=== PATIENT | male | born 1955 | race Caucasian/White ===

== ENCOUNTER 2019-05-11 19:30 | Inpatient (IN) | payer BC ==
[~2019-05-11] VITALS: Ht 167.6 cm; Wt 82.8 kg
[~2019-05-11 19:30] MED LIST: ACET325T14 PO; ASPI-515 PO; ASPI-650 PO; ATOR-2 PO; BISA10SU54 PR; CLOP75TA PO; CYAN-27 PO; DOCU100C33 PO; ENOX40SY4 SQ; HYDR-3237 PO; LISI-167 PO; NICO-485 TD; POLY17PO5 PO; TEMA15CA PO; UNK BP MED; [UNRECOGNIZED DRUG - CODE] TP
--- NOTE | 2019-05-11 19:52 | NUR ---
GUILLERMINA VASQUEZ SON [phone]. CALL FOR RIDE HOME AND UPDATES
--- NOTE | 2019-05-11 20:07 | NUR ---
Patient presents to ER c/o unspecified abd pain. Patient has N/V. Symptoms since yesterday. Patient denies back pain. Patient denies diarrhea. Patient is in NAD. REspirations even and unlabored. No pain upon palpation.
[2019-05-11] MEDS ORDERED: ONDANSETRON 2MG/ML, 2ML ONE (20:22)
[2019-05-11] MEDS ORDERED: METO25TA35 PO (20:25)
[2019-05-11] MEDS ORDERED: SODIUM CHLORIDE FLUSH 10ML SYR IVF ONE (20:30)
[2019-05-11] MEDS ORDERED: ONDANSETRON 2MG/ML, 2ML IVPush ONE (20:30)
[2019-05-11] MEDS ORDERED: SODIUM CHLORIDE 0.9% 1,000ML IVBOLUS ONE (20:30)
--- NOTE | 2019-05-11 20:31 | NUR ---
EKG DONE BY [facility]
[2019-05-11 20:53] LABS: BASOPHILS # (AUTO) 0.05 x10^3/uL (0-0.1); BASOPHILS % (AUTO) 0 % (0-1); EOSINOPHILS # (AUTO) 0.03 x10^3/uL (0-0.4); EOSINOPHILS % (AUTO) 0 % (1-7); LYMPHOCYTES # (AUTO) 1.01 x10^3/uL (1-3.4); LYMPHOCYTES % (AUTO) 9 % (22-44); MD NO; MEAN CORPUSCULAR HEMOGLOBIN 30.6 pg (27.5-34.5); MEAN CORPUSCULAR HGB CONC 33.3 g/dL (33.2-36.2); MEAN CORPUSCULAR VOLUME 91.7 fL (81-97); MEAN PLATELET VOLUME 8.1 fL (7.4-10.4); MONOCYTES # (AUTO) 0.73 x10^3/uL (0.2-0.8); MONOCYTES % (AUTO) 6 % (2-9); NEUTROPHILS # (AUTO) 9.52 x10^3/uL (1.8-6.8); NEUTROPHILS % (AUTO) 84 % (42-75); PLATELET COUNT 326 x10^3/uL (130-400); RED BLOOD COUNT 5.33 x10^6/uL (4.38-5.82); RED CELL DISTRIBUTION WIDTH 15.5 % (9.4-14.8)
[2019-05-11 21:02] LABS: ALANINE AMINOTRANSFERASE 44 U/L (12-78); ANION GAP 8 mmol/L (5-15); CALCIUM 9.5 mg/dL (8.5-10.1); CHLORIDE 105 mmol/L (98-107); CREATININE 1.77 mg/dL (0.7-1.3)
[2019-05-11 21:10] LABS: ALKALINE PHOSPHATASE 122 U/L (45-117); BILIRUBIN,TOTAL 0.6 mg/dL (0.2-1.0); TOTAL PROTEIN 8.8 g/dL (6.4-8.2)
--- NOTE | 2019-05-11 21:31 | NUR ---
PT REFUSED CT UNTIL HE TALK TO HIS SON.
--- NOTE | 2019-05-11 22:14 | NUR ---
Spoke with patient regarding CT. Patient agreed to have the CT. Called son and LVM and asked him to come to the ER to be with patient. Patient is a poor historian and has to be reminded often of the situation.
--- NOTE | 2019-05-11 22:27 | NUR ---
Patient in CT.
[2019-05-11] MEDS ORDERED: OMNIPAQUE 350 MG/ML, 100ML BOTTLE ONE (22:29)
--- NOTE | 2019-05-11 23:00 | NUR ---
Spoke with Doc, patient's son. He is to be here in approx 20 min.
[2019-05-11] MEDS ORDERED: METRONIDAZOLE PMX 500MG/100ML 100 ML ONE (23:08)
[2019-05-11] MEDS ORDERED: AMLO10TA8 PO (23:12)
[2019-05-11] MEDS ORDERED: ATOR40TA78 PO (23:12)
--- NOTE | 2019-05-12 00:20 | NUR ---
Break RN: Dr. Hays at bedside
[2019-05-12 00:25] LABS: INTERNATIONAL NORMALIZED RATIO 0.99 (0.93-1.1); PROTHROMBIN TIME 10.5 Seconds (9.6-11.5)
[2019-05-12] MEDS ORDERED: hydrALAzine 20 MG/ML, 1ML IVPush PRN (00:30)
[2019-05-12] MEDS ORDERED: ONDANSETRON 2MG/ML, 2ML IVPush PRN (00:30)
[2019-05-12] MEDS ORDERED: ACETAMINOPHEN 325 MG TABLET PO PRN (00:30)
[2019-05-12] MEDS ORDERED: morphine SULFATE 10 MG/ML, 1ML IVPush PRN (00:30)
[2019-05-12] MEDS ORDERED: PROMETHAZINE 25 MG/ML, 1ML IM PRN (00:30)
[2019-05-12] MEDS: LACTATED RINGERS 1,000 ML IV SCH ×3 (00:30→12:33)
[2019-05-12] MEDS ORDERED: CEFTRIAXONE PMX 1GM/50ML 50 ML ONE (00:35)
[2019-05-12] MEDS ORDERED: METRONIDAZOLE PMX 500MG/100ML 0 ML ONE (00:35)
[2019-05-12] MEDS: CEFTRIAXONE PMX 1GM/50ML 50 ML IV SCH (00:38)
--- NOTE | 2019-05-12 00:42 | NUR ---
TASK RN: ABX INITIATED. BC X2 DRAWN PRIOR TO ADMIN. PT SITTING UP, AWAKE/ALERT, MILDLY ALTERED. SON AT BEDSIDE. PT APPEARS PALE. IVF INFUSING. BP/SPO2/ECG MONITORING IN PLACE. NSR ON MONITOR.
[2019-05-12] MEDS: METRONIDAZOLE PMX 500MG/100ML 100 ML IV SCH ×4 (00:59→18:41)
[2019-05-12] MEDS ORDERED: SODIUM PHOSPHATE 10 MMOL in SODIUM CHLORIDE 0.9% 500 ML IV ONE (01:00)
--- NOTE | 2019-05-12 01:14 | NUR ---
Report given to AMIRAH Madera. Patient to be transferred to room 551-1.
[2019-05-12 01:46] VITALS: BP 134/79
[2019-05-12 03:37] LABS: BASOPHILS # (AUTO) 0.03 x10^3/uL (0-0.1); BASOPHILS % (AUTO) 0 % (0-1); EOSINOPHILS # (AUTO) 0.23 x10^3/uL (0-0.4); EOSINOPHILS % (AUTO) 2 % (1-7); LYMPHOCYTES # (AUTO) 1.08 x10^3/uL (1-3.4); LYMPHOCYTES % (AUTO) 10 % (22-44); MD NO; MEAN CORPUSCULAR HEMOGLOBIN 30.6 pg (27.5-34.5); MEAN CORPUSCULAR HGB CONC 33.3 g/dL (33.2-36.2); MEAN CORPUSCULAR VOLUME 91.8 fL (81-97); MEAN PLATELET VOLUME 7.9 fL (7.4-10.4); MONOCYTES # (AUTO) 0.82 x10^3/uL (0.2-0.8); MONOCYTES % (AUTO) 7 % (2-9); NEUTROPHILS # (AUTO) 8.89 x10^3/uL (1.8-6.8); NEUTROPHILS % (AUTO) 81 % (42-75); PLATELET COUNT 270 x10^3/uL (130-400); RED BLOOD COUNT 4.35 x10^6/uL (4.38-5.82); RED CELL DISTRIBUTION WIDTH 15.5 % (9.4-14.8)
[2019-05-12 03:41] LABS: ALANINE AMINOTRANSFERASE 27 U/L (12-78); ALBUMIN 2.8 g/dL (3.4-5.0); ANION GAP 6 mmol/L (5-15); CALCIUM 7.9 mg/dL (8.5-10.1); CHLORIDE 112 mmol/L (98-107); CREATININE 0.85 mg/dL (0.7-1.3)
[2019-05-12 03:43] LABS: ALKALINE PHOSPHATASE 88 U/L (45-117); BILIRUBIN,TOTAL 0.4 mg/dL (0.2-1.0); TOTAL PROTEIN 6.5 g/dL (6.4-8.2)
[2019-05-12 04:00] VITALS: BP 134/82
[2019-05-12 10:55] VITALS: BP 113/75
[2019-05-12 12:49] VITALS: BP 119/71
[2019-05-12 22:34] VITALS: BP 134/89
[2019-05-13 00:34] VITALS: BP 137/85
[2019-05-13] MEDS: METRONIDAZOLE PMX 500MG/100ML 100 ML IV SCH ×4 (00:48→18:26)
[2019-05-13] MEDS: CEFTRIAXONE PMX 1GM/50ML 50 ML IV SCH (01:57)
[2019-05-13] MEDS: LACTATED RINGERS 1,000 ML IV SCH ×2 (04:01→12:36)
[2019-05-13 05:04] LABS: BASOPHILS # (AUTO) 0.03 x10^3/uL (0-0.1); BASOPHILS % (AUTO) 1 % (0-1); EOSINOPHILS # (AUTO) 0.52 x10^3/uL (0-0.4); EOSINOPHILS % (AUTO) 8 % (1-7); LYMPHOCYTES % (AUTO) 18 % (22-44); MD NO; MEAN CORPUSCULAR HEMOGLOBIN 30.6 pg (27.5-34.5); MEAN CORPUSCULAR HGB CONC 32.9 g/dL (33.2-36.2); MEAN PLATELET VOLUME 7.9 fL (7.4-10.4); MONOCYTES # (AUTO) 0.57 x10^3/uL (0.2-0.8); MONOCYTES % (AUTO) 9 % (2-9); NEUTROPHILS # (AUTO) 4.46 x10^3/uL (1.8-6.8); NEUTROPHILS % (AUTO) 66 % (42-75); PLATELET COUNT 209 x10^3/uL (130-400); RED BLOOD COUNT 3.83 x10^6/uL (4.38-5.82); RED CELL DISTRIBUTION WIDTH 15.4 % (9.4-14.8)
[2019-05-13 05:11] LABS: ANION GAP 5 mmol/L (5-15); CALCIUM 7.4 mg/dL (8.5-10.1); CHLORIDE 113 mmol/L (98-107); CREATININE 0.59 mg/dL (0.7-1.3)
[2019-05-13 05:14] LABS: CHOLESTEROL, TOTAL 88 mg/dL (140-239); HDL CHOL % 49 % (26-37); HDL CHOLESTEROL (DIRECT) 43 mg/dL (40-60); LDL CHOLESTEROL,CALCULATED 37 mg/dL (54-169); LDL/HDL RATIO 0.9 (0.5-3.0); TRIGLYCERIDES 41 mg/dL (50-200); VLDL CHOLESTEROL 8 mg/dL (0-25)
[2019-05-13 07:28] VITALS: BP 126/84
[2019-05-13 12:48] VITALS: BP 127/78
[2019-05-13 18:23] VITALS: BP 127/75
[2019-05-14 00:41] VITALS: BP 145/83
[2019-05-14] MEDS: METRONIDAZOLE PMX 500MG/100ML 100 ML IV SCH ×3 (00:44→12:56)
[2019-05-14] MEDS: CEFTRIAXONE PMX 1GM/50ML 50 ML IV SCH (02:04)
[2019-05-14] MEDS: LACTATED RINGERS 1,000 ML IV SCH ×2 (03:21→11:28)
[2019-05-14 05:58] LABS: BASOPHILS # (AUTO) 0.03 x10^3/uL (0-0.1); BASOPHILS % (AUTO) 0 % (0-1); EOSINOPHILS # (AUTO) 0.56 x10^3/uL (0-0.4); EOSINOPHILS % (AUTO) 8 % (1-7); LYMPHOCYTES # (AUTO) 1.09 x10^3/uL (1-3.4); LYMPHOCYTES % (AUTO) 15 % (22-44); MD NO; MEAN CORPUSCULAR HEMOGLOBIN 30.3 pg (27.5-34.5); MEAN CORPUSCULAR HGB CONC 32.5 g/dL (33.2-36.2); MEAN CORPUSCULAR VOLUME 93.1 fL (81-97); MEAN PLATELET VOLUME 8.3 fL (7.4-10.4); MONOCYTES # (AUTO) 0.61 x10^3/uL (0.2-0.8); MONOCYTES % (AUTO) 8 % (2-9); NEUTROPHILS # (AUTO) 5.13 x10^3/uL (1.8-6.8); NEUTROPHILS % (AUTO) 69 % (42-75); PLATELET COUNT 222 x10^3/uL (130-400); RED BLOOD COUNT 4.02 x10^6/uL (4.38-5.82); RED CELL DISTRIBUTION WIDTH 14.5 % (9.4-14.8)
[2019-05-14 06:11] LABS: ANION GAP 6 mmol/L (5-15); CHLORIDE 108 mmol/L (98-107); CREATININE 0.58 mg/dL (0.7-1.3)
[2019-05-14 06:59] VITALS: BP 137/81
[2019-05-14] MEDS ORDERED: CEFD300C37 PO (13:10)
[2019-05-14] MEDS ORDERED: METR-90 PO (13:10)
[2019-05-14 13:13] VITALS: BP 144/84
--- NOTE | 2019-05-14 14:50 | NUR ---
REC: Pureed/thin liquid diet; float or crush meds Addendum: 05/14/19 at 1450 by Lizbeth REHMAN Amended: Links added.
== END 2019-05-14 19:08 | disposition home or self-care (01) | DRG 871 ==
LOC: ED 21:04 → EDIP 23:16 → CCU 05-12 01:31 → 3N 05-12 10:57
PROVIDERS: ADMIT Family Medicine; ATTEND Hospitalist
DX: A41.9 Sepsis, unspecified organism (principal); J69.0 Pneumonitis due to inhalation of food and vomit; K55.059 Acute (reversible) ischemia of intestine, part and extent unspecified; N17.0 Acute kidney failure with tubular necrosis; G93.41 Metabolic encephalopathy; I69.354 Hemiplegia and hemiparesis following cerebral infarction affecting left non-dominant side; E78.5 Hyperlipidemia, unspecified; F03.90 Unspecified dementia, unspecified severity, without behavioral disturbance, psychotic disturbance, mood disturbance, and anxiety; F17.200 Nicotine dependence, unspecified, uncomplicated; I10 Essential (primary) hypertension; K31.89 Other diseases of stomach and duodenum; Z82.49 Family history of ischemic heart disease and other diseases of the circulatory system; Z79.899 Other long term (current) drug therapy; Z88.2 Allergy status to sulfonamides; Z79.82 Long term (current) use of aspirin
CPT/HCPCS: 36415; 71045; 74177; 80048; 80053; 80061; 83605; 83690; 83735; 84100; 85025; 85610; 87040; 87081; 93005; 96361; 96374; 96375; G0378; J0696; J2405; Q9967; J7030; J7040; J7120